=== PATIENT | male | born 1960 | race Caucasian/White ===

== ENCOUNTER → 2016-07-25 | Outpatient (CLI) | payer BC ==
[~2016-07-25] MED LIST: ALBUAER19 INH; ASPI81TA28 PO; CHOL20009 PO; CYAN10005 PO; GLCSR10 PO; LIRA18IN SQ; LISI-461 PO; METF-384 PO; RANI150T3 PO; ZCR40 PO
--- NOTE | 2016-07-28 21:17 | PULMONARY FUNCTION TEST ---
Spirometry is consistent with a moderate obstructive pattern. Repeat study done following bronchodilators showed significant improvement in function, indicating at least partially reversible obstructive airways disease. The forced vital capacity improved by 18% and the FEV1 improved by 17%. This would be compatible with a diagnosis of asthma.
== END | disposition home or self-care (01) ==
LOC: C.RC 10:35
PROVIDERS: ATTEND Student in an Organized Health Care Education/Training Program
DX: J45.909 Unspecified asthma, uncomplicated (principal)

== ENCOUNTER → 2017-01-04 | Outpatient (CLI) | payer BC ==
--- NOTE | 2017-01-08 13:50 | PULMONARY FUNCTION TEST ---
Spirometry shows a mild obstructive pattern. Repeat study done following bronchodilators showed a 22% improvement in forced vital capacity and a 20% improvement in FEV1. This would suggest at least partially reversible obstructive airways disease. Flow volume loops were consistent with spirometric findings.
== END | disposition home or self-care (01) ==
LOC: C.RC 09:12
PROVIDERS: ATTEND Family Medicine
DX: J45.41 Moderate persistent asthma with (acute) exacerbation (principal)

== ENCOUNTER → 2017-03-16 | Outpatient (CLI) | payer BC ==
[~2017-03-16] VITALS: Ht 182.9 cm; Wt 138.8 kg
[2017-03-16 13:22] VITALS: BP 170/80; PULSE 77; Ht 182.9 cm; Wt 138.8 kg
[2017-03-16 13:23] VITALS: BP 142/95; PULSE 65
== END | disposition home or self-care (01) ==
LOC: C.NEUR 12:57
PROVIDERS: ATTEND Internal Medicine Pulmonary Disease
DX: R06.83 Snoring (principal); R53.83 Other fatigue; R60.0 Localized edema; J45.909 Unspecified asthma, uncomplicated; J30.9 Allergic rhinitis, unspecified; J34.2 Deviated nasal septum

== ENCOUNTER → 2017-03-21 | Outpatient (CLI) | payer BC ==
--- NOTE | 2017-03-23 14:23 | POLYSOMNOGRAPH REPORT ---
CLINICAL DATA: A 56-year-old male with BMI of 41.5 referred by myself, Dr. Hurt and Dr. Mccarty with snoring, fatigue, peripheral edema, morning headaches, obesity, and asthma. On the evening of 03/21/2017, a home sleep apnea test was performed using a NovusEdge type 3 monitor. RECORDING RESULTS: Total recording time was 10 hours. The patient's monitoring time and estimated sleep time was 10 hours. RESPIRATORY DATA: Moderate sleep apnea was documented. The GRACE was 22.7. There were 28 obstructive, 6 mixed, and 1 central apneic episodes. There were 192 hypopneic episodes. The longest respiratory event was 56 seconds. OXIMETRY DATA: Nocturnal hypoxemia was seen. Oxygen nery 78%. Mean saturation was 90% . Time below 89% was 123 minutes. HEART RATE DATA: Heart rates ranged from 49-64 beats per minute. SNORING DATA: Loud snoring was recorded throughout the night. CRYSTALIZER OPERATOR'S COMMENTS: Snoring was recorded throughout the test. Hypopneas and apneas were seen. The patient also had some nonapneic desaturations. IMPRESSION: Moderate sleep apnea/hypopnea with nocturnal hypoxemia. RECOMMENDATIONS: The patient may benefit from a repeat sleep study with CPAP, use of auto CPAP, or use of an oral appliance. Clinical correlation is needed. ALYCE
== END | disposition home or self-care (01) ==
LOC: C.NEUR 09:29
PROVIDERS: ATTEND Internal Medicine Pulmonary Disease
DX: G47.30 Sleep apnea, unspecified (principal); J34.2 Deviated nasal septum; J30.9 Allergic rhinitis, unspecified; J45.909 Unspecified asthma, uncomplicated; R60.0 Localized edema; R53.83 Other fatigue; R06.83 Snoring

== ENCOUNTER → 2017-05-07 | Outpatient (CLI) | payer BC ==
--- NOTE | 2017-05-07 11:05 | DIAGNOSTIC IMAGING REPORT ---
KUB CLINICAL HISTORY: Nephrolithiasis. COMPARISON STUDY: KUB May 04, 2016. FINDINGS: Exam is compromised by suboptimal penetration. Bowel gas pattern is normal. No urinary calculi are identified. IMPRESSION: No urinary calculi identified. Electronically signed by: William Gallo M.D. 05/07/2017 11:04 AM Dictated Date/Time: 05/07/2017 11:03 AM
== END | disposition home or self-care (01) ==
LOC: C.RADPV 10:31
PROVIDERS: ATTEND Urology
DX: N20.0 Calculus of kidney (principal)

== ENCOUNTER → 2017-05-08 | Outpatient (CLI) | payer BC ==
[~2017-05-08] VITALS: Ht 182.9 cm; Wt 136.4 kg
[2017-05-08 16:27] VITALS: BP 137/98; PULSE 71; Ht 182.9 cm; Wt 136.4 kg
== END | disposition home or self-care (01) ==
LOC: C.NEUR 14:05
PROVIDERS: ATTEND Physician Assistant Medical
DX: G47.33 Obstructive sleep apnea (adult) (pediatric) (principal); R53.83 Other fatigue; E66.01 Morbid (severe) obesity due to excess calories; R06.83 Snoring; I10 Essential (primary) hypertension

== ENCOUNTER 2017-05-21 09:19 | Day surgery (SDC) | payer BC ==
[~2017-05-21] VITALS: Ht 182.9 cm; Wt 136.5 kg
--- NOTE | 2017-05-21 06:28 | History and Physical ---
History & Physical Date of Service May 21, 2017. History & Physical CC: Bilateral lower extremity varicose veins HPI: Mr. Owusu states that he has had these particularly in his right leg for a number of years and that in the past few months he has noticed some worsening down his lower leg. He has also had a pruritic rash to his lower legs which lasted a few weeks and then resolved which he believes may have been consistent with stasis dermatitis as he did some of his own Internet research. The patient does have some chronic discomfort in his bilateral knees for which he undergoes knee injections. He also has discomfort in the varicosities of his bilateral lower extremities which are significantly worse in the right leg than the left. He states that his right leg has chronically been larger due to edema in comparison to his left. He states that he recently retired and that he does have an old pair of compression stockings, but that he has not been wearing them on a regular basis. He states he has difficulty exercising due to his bilateral knee pain. Non invasives showed venous insufficiency of the right lower extremity. He denies any ulcers, bleeding varicosities from hard cords over his varicosities. He also denies headaches, fevers, chills, dizziness, chest pain, shortness of breath, abdominal pain, nausea, vomiting, diarrhea, constipation, dysuria, rest pain, claudication or other complaints. ALLERGIES: Bee stings and dust. HOME MEDICATIONS: Reconciled on the chart and include the following: Advair Diskus, albuterol, aspirin, azelastine, Flomax, fluticasone, Humalog KwikPen, Lantus SoloSTAR, metformin, omeprazole, ranitidine, simvastatin, vitamin B12 and vitamin D3. PAST MEDICAL HISTORY: Positive for asthma, degenerative joint disease, type 2 diabetes mellitus, hypertension, low-back pain and osteoarthritis. PAST SURGICAL HISTORY: Colonoscopy, deviated septum, left foot surgery, trigger finger release. SOCIAL HISTORY: Positive for past history of tobacco use. The patient quit smoking 36 years ago. He denies illicit drug use. He occasionally has beer 1- 2 times a week. REVIEW OF SYSTEMS: Negative for fatigue, fevers, sweats, weight loss, exercise intolerance, abnormal moles, vision changes or photophobia, ear pain, sinus problems, sore throat, cough, shortness of breath, hemoptysis or wheezing, chest pain, palpitations or syncope. He does have edema of his lower extremities, which is chronic and worse in the right leg than the left. He has abdominal pain, nausea, vomiting, diarrhea, constipation, dysuria, hematuria, muscle weakness, headaches, dizziness, numbness or seizures. PHYSICAL EXAMINATION: His vital signs are as follows: Blood pressure of 118/ 92 in the right arm, 128/82 in the left, heart rate 60, respiratory rate 18, oxygenation 96% on room air. Constitutional: In general, patient is an obese, generally healthy-appearing, well-nourished, well-developed middle-aged male in no acute distress. He ambulates without assistance and is active, alert and oriented x4 with normal recent and remote memory. Head is normocephalic and atraumatic. Eyes are EOMI. ENMT: No hearing loss, rhinorrhea or pharyngeal erythema. Neck is supple, nontender with midline trachea without masses or crepitus. Lungs: clear, no dyspnea. They are decreased somewhat throughout, but clear bilaterally. Cardiovascular exam demonstrates nondisplaced apical impulse. Peripheral pulses are full and equal in all extremities unless otherwise noted. Specifically, bilateral carotid, brachial, radial, femoral, posterior tibial and dorsalis pedis pulses. The patient demonstrates no bruits in his carotid, abdominal or femoral area. Abdomen is soft, nontender with normal active bowel sounds in all 4 quadrants without guarding or rebound. There is no flank or CVA tenderness. I am unable to appreciate a pulsatile mass due to body habitus. Bilateral upper extremities demonstrate no cyanosis, edema, varicosities or ulcers. Bilateral lower extremities do demonstrate some scattered varicosities as well as some skin changes consistent with hemosiderin deposits and venous stasis. His right leg demonstrates an extremely large varicosity which arises in the mid medial anterior thigh and extends across his knee as well as distally in the medial aspect of his right lower leg. This is nontender and there is no erythema or firm hard cord noted. Neurologically, the patient has grossly intact cranial nerves and grossly intact sensation. ASSESSMENT: Complicated varicose veins of the lower extremities. PLAN: Patient is admitted for ablation of the greater saphenous vein of the right lower extremity. I have discussed the risks options and benefits of the procedure with the patient. The patient understands the risks options and benefits and agrees to the procedure.
[~2017-05-21 09:19] MED LIST changes: +CEFAZOLIN 1000MG IV PUSH 5 ML IV SCH; +PATIENT'S HEIGHT AND/OR WEIGHT NEEDED SCH; +SODIUM CHLORIDE 0.9% 1000ML IV SCH
[2017-05-21] MEDS ORDERED: INSDGI SC ×2 (09:42→09:44)
[2017-05-21] MEDS ORDERED: INSPMPHMLG SC (09:44)
[2017-05-21 09:48] VITALS: BP 156/86; PULSE 57; TEMP 36.7; O2SAT 96; Ht 182.9 cm; Wt 136.5 kg
[2017-05-21] MEDS ORDERED: ADVIN25/60 INH (10:15)
[2017-05-21] MEDS ORDERED: SODIUM CHLORIDE 0.9% 1000ML 1,000 ML IV SCH (10:17)
--- NOTE | 2017-05-21 10:18 | Procedure Note ---
Pre-Mod Sedation Assessment General Date of Moderate Sedation: May 21, 2017. Vital Signs: Vital Signs Past 12 Hours Date Time Temp Pulse Resp B/P (MAP) Pulse Ox O2 Delivery O2 Flow Rate FiO2 05/21/17 09:48 36.7 57 20 156/86 (109) 96 Room Air Pre-Sedation Airway Assessment Short Thick Neck: No Hx of Sleep Apnea: Yes Smoking Status: Never Smoker Mallampati Classification: Class I ASA Classification: Class I Notes The planned sedation has been discussed with the patient and consent obtained. I have identified the patient, determined the appropriateness of sedation and have assessed the patient immediately prior to the procedure. All medicine(s) and interventions are by my order.
--- NOTE | 2017-05-21 10:18 | History & Physical Bridge Note ---
H&P Re-Evaluation Bridge Note: I have examined the patient, reviewed the History & Physical and in the interval since the performance of the History & Physical I have noted the following changes of clinical significance: No changes noted
[2017-05-21] MEDS ORDERED: CEFAZOLIN SOD 3000MG/15 ML IV PUSH IV ONE (10:21)
[2017-05-21] MEDS ORDERED: LIDOCAINE HCL 1% 20 ML VIAL ONE (10:28)
[2017-05-21] MEDS ORDERED: LIDOCAINE/EPINEPHRINE 1% INJ 50 ML VIAL ONE (10:28)
[2017-05-21] MEDS ORDERED: FENTANYL CITRATE INJ 50 MCG/1 ML 2 ML VIAL ONE (10:28)
[2017-05-21] MEDS ORDERED: MIDAZOLAM HCL 1 MG/ML 2ML VIAL ONE (10:28)
[2017-05-21] MEDS ORDERED: CEFAZOLIN IV 1,000 MG in DEXTROSE 5% 50ML 50 ML IV ONE (10:30)
[2017-05-21 10:35] VITALS: BP 156/86; PULSE 57; TEMP 36.7; O2SAT 96
[2017-05-21] MEDS ORDERED: MIDAZOLAM HCL 5 MG/ML 1 ML VIAL IV ONE (10:54)
--- NOTE | 2017-05-21 11:26 | Procedure Note ---
Post-Moderate Sedation Plan General Date of Moderate Sedation May 21, 2017. Vital Signs: Vital Signs Past 12 Hours Date Time Temp Pulse Resp B/P (MAP) Pulse Ox O2 Delivery O2 Flow Rate FiO2 05/21/17 10:35 36.7 57 20 156/86 96 Room Air 05/21/17 09:48 36.7 57 20 156/86 (109) 96 Room Air Review - Discharge Plan Post Moderate Sedation Plan: On clinical assessment, the patient appears to have tolerated the conscious sedation without complications. Patient is recovering as anticipated. Patient will continue to be monitored by nursing and may be discharged when conscious sedation discharge criteria are met.
--- NOTE | 2017-05-21 11:27 | [facility] Post Operative Brief Note ---
Immediate Operative Summary Operative Date May 21, 2017. Pre-Operative Diagnosis Venous Insufficiency Post-Operative Diagnosis Same Procedure(s) Performed Radiofrequency Ablation Right Great Saphenous Vein Moderate Sedation [id number] Surgeon Travis Obstetrics Teacher Surgeon(s) Frannie Estimated Blood Loss 5 Findings Patent CFV post ablation Specimens None Anesthesia Local with sedation Complication(s) None Disposition
--- NOTE | 2017-05-21 11:29 | Discharge Instructions ---
Discharge Instructions Date of Service May 21, 2017. Visit Reason for Visit: Complicated Varicose Veins Discharge Discharge Diagnosis / Problem: Right venous insufficiency Discharge Goals Goal(s): Therapeutic intervention Activity Recommendations Activity Limitations: per Instructions/Follow-up section Anesthesia . Post Anesthesia Instructions: If you have had General Anesthesia or IV Sedation: * Do not drive today. * Resume driving when surgeon permits. * Do not make important decisions or sign legal documents today. * Call surgeon for: 1. Temperature elevations greater than 101 degrees F. 2. Uncontrollable pain. 3. Excessive bleeding. 4. Persistent nausea and vomiting. 5. Medication intolerance (nausea, vomiting or rash). * For nausea and vomiting use only clear liquids such as: tea, soda, bouillon until nausea subsides, then gradually increase diet as tolerated. * If you have any concerns or questions, call your surgeon's office. If physician is unavailable and it is an emergency, call 911 or go to the nearest emergency room. . Instructions / Follow-Up Instructions / Follow-Up Call [phone] to schedule a follow up appointment if one not already scheduled. SPECIAL CARE INSTRUCTIONS: Wraps/Dressings: * A compression wrap will be applied to your legs after the procedure and should remain in place until the morning after. * Remove the bandage if it rolls down or causes pain. Rewrap the leg starting at the bottom of the leg, just above the toes. Apply firm, but gently pressure when applying the wrap. * Avoid getting the wrap wet. * You may shower the following morning after you remove the wraps/dressings. Compression Stockings: * Begin wearing compression stockings the day following your procedure (after you have removed the wraps/dressings and showered). * Compression stockings should be put on in the morning and removed right before going to bed. * Stockings should be worn for 2 weeks following the procedure. * YOU MUST OBTAIN THE PRESCRIBED STOCKINGS PRIOR TO YOUR PROCEDURE. Activity: * Walk 4-5 times around the house after you come home from your procedure. * Elevate your leg(s) while sitting. * You may resume your normal activities as tolerated after 48 hours. * AVOID HEAVY LIFTING FOR 1 WEEK AND/OR CAR TRIPS OVER 1 HOUR OR FLYING FOR 2 WEEKS. Possible Complications: * Swelling/Bruising/Soreness - You may have some swelling, bruising and/or soreness after the procedure. you may also feel a "cord or rope" under the skin. This is normal. You may take Tylenol or Ibuprofen for pain as directed. Call our office ([phone]) if you develop: * Any redness, severe swelling, pain in the calf and/or drainage from the puncture sites You will be receiving a call from the Vascular Surgery Nurse after you are discharged. FOLLOW UP VISIT: You will be scheduled for an ultrasound of your leg(s) 4-5 days after the procedure. You will have a follow up visit with your surgeon in 2-4 weeks. If these have not already been scheduled, please call our office at [phone] to schedule. Diet Recommendations Recommended Home Diet: resume previous diet Procedures Procedures Performed: Radiofrequency Ablation Right Great Saphenous Vein Moderate Sedation [id number] Pending Studies Studies pending at discharge: no Medical Emergencies . Who to Call and When: Medical Emergencies: If at any time you feel your situation is an emergency, please call 911 immediately. . Non-Emergent Contact Non-Emergency issues call your: Surgeon . . "Provider Documentation" section prepared by Jonh Robles. .
[2017-05-21] MEDS ORDERED: LIDOCAINE HCL 1% 20 ML VIAL INJ ONE (11:31)
[2017-05-21] MEDS ORDERED: ORM MISCELLANEOUS MED XX ONE (11:31)
[2017-05-21] MEDS ORDERED: FENTANYL CITRATE INJ 50 MCG/1 ML 2 ML VIAL IV ONE (11:34)
[2017-05-21 11:35] VITALS: BP 129/82; PULSE 61; TEMP 36.6; O2SAT 94
--- NOTE | 2017-05-21 11:56 | DIAGNOSTIC IMAGING REPORT ---
DATE OF PROCEDURE: 05/21/2017 PREOPERATIVE DIAGNOSIS: Right lower extremity greater saphenous vein venous insufficiency with symptomatic varicosities. POSTOPERATIVE DIAGNOSIS: Same. PROCEDURE: 1. Right lower extremity greater saphenous vein ablation. 2. Conscious sedation for 35 minutes. SURGEON: Dr. Jonh Robles. RESUME WRITER: Dr. Lilly Kathleen. ANESTHESIA: Local plus conscious sedation. URINE OUTPUT: Not recorded. CONDITION: Stable to recovery room. COMPLICATIONS: None apparent. INDICATIONS: Mr. Owusu is a 56-year-old male who presents with large right lower extremity varicosities that are painful and greater saphenous vein venous insufficiency. He has failed steroid therapy so he was advised of the risks and benefits of undergoing evaluation; he agreed to undergo the above procedure. DESCRIPTION OF PROCEDURE: He was brought into the operative suite. He was placed in supine position. He was prepped and draped in the usual fashion. A timeout occurred. His right greater saphenous vein was intubated for its entire length. It was found to be entirely from the saphenofemoral junction to the mid calf. It was found to be large throughout its entire length. An adequate spot in the mid calf was identified this area of access. A micropuncture needle was then used to access the greater saphenous vein under ultrasound guidance. The micro wire was inserted. Its placement was confirmed under ultrasound. The sheath was placed over the wire. A 0.025 wire was then placed through the sheath into the greater saphenous vein up to the saphenofemoral junction. The ablation catheter was placed over the wire. Its position 2.5 cm from the saphenofemoral junction was identified and measured under ultrasound. The wire was then removed. Tumescent was instilled around the entire length of the greater saphenous vein. The position of the catheter was reconfirmed with ultrasound that it was 2.5 cm from the greater saphenous junction. Radiofrequency ablation was then performed on the right greater saphenous vein. The first and second was ablated twice and the rest was ablated once. The catheter and sheath were removed and hemostasis was obtained. The patient's leg was then wrapped with Stoney wrap and he was transferred to the recovery room in stable condition. Dr. Jonh Robles was present and scrubbed for the entirety of this case. ALYCE
[2017-05-21 12:05] VITALS: BP 149/91; PULSE 57; TEMP 36.5; O2SAT 94
== END 2017-05-21 12:30 | disposition home or self-care (01) ==
LOC: C.ACU 09:19
PROVIDERS: ATTEND Surgery Vascular Surgery
DX: I87.2 Venous insufficiency (chronic) (peripheral) (principal); I10 Essential (primary) hypertension; E11.9 Type 2 diabetes mellitus without complications; J45.909 Unspecified asthma, uncomplicated; M19.90 Unspecified osteoarthritis, unspecified site; Z87.891 Personal history of nicotine dependence; Z79.82 Long term (current) use of aspirin; Z79.4 Long term (current) use of insulin; Z79.899 Other long term (current) drug therapy

== ENCOUNTER → 2017-05-22 | Outpatient (CLI) | payer BC ==
[~2017-05-22] MED LIST changes: +ADVIN25/60 INH; -CEFAZOLIN 1000MG IV PUSH 5 ML IV SCH; -GLCSR10 PO; +INSDGI SC; +INSPMPHMLG SC; -LIRA18IN SQ; -PATIENT'S HEIGHT AND/OR WEIGHT NEEDED SCH; -SODIUM CHLORIDE 0.9% 1000ML IV SCH
--- NOTE | 2017-05-23 05:19 | PAP/PSG TECHNICIAN REPORT ---
[facility] Car Installations Supervisor Polysomnogram Report Study name: None Report date: 05/23/2017 Study date: 05/22/2017 Referring Physician: Kofi Chowdhury M.D. Name: RACHEL OWUSU Interpreting Physician: Kofi Chowdhury M.D. Date of : 1960 Car Installations Supervisor: Ann Garcia [facility]. Sex: Male Age: 56 Study Type: PSG PAP Weight: 300 lbs Height: 56 years, Height 6' 0" BMI: 40.68 Medications: ADVAIR DISKUS 250-50-MCG/DOSE, ALFUZOSIN 10 MG, FLONASE, HUMALOG 100 UNIT/ML, LANTUS SOLOSTAR 100 UNIT/ML, LISINOPRIL 10 MG, METFORMIN 1000 MG, OMEPRAZOLE, SIMVASTATIN 40 MG, VENTOLIN HFA, VIT B-12 1000 MCG, VIT D 2000 UNIT, ZANTAC Patient History 56 yr-old male here for a new CPAP treatment study. He was found to be positive for CARSON via a home sleep study. He chose a Simplus full face mask size medium from [employer]. The test was started on room air and 4 CMH2O. ETCO2 testing was not utilized during this study. Room 1 Parameters Monitored NPSG: E1-M2, E2-M1, Fp1-M2, Fp2-M1, F3-M2, F4-M2, F4-M1, C3-M2, C4-M2, C4-M1, O1-M2, O2-M2, O2-M1, T3-M2, T4-M1, P3-M2, P4-M1, CHIN1, CHIN2, HR, EKG, Legs, PFLOW, SNOR, FLOW, CFLOW, Tidal Volume, THOR, ABDO, SpO2, PLTH, CPRESS, ETCO2 Wave, ETCO2, pH Sleep Architecture Sleep Stages Time at Lights Off 10:19:19 PM STAGES Time (min.) TST (%) Time at Lights On 5:04:19 AM Wake 48.0 -- Total Recording Time (TRT) 405.00 min. N1 24.5 7 Total Sleep Period (TSP) 394.0 min. N2 271.5 76 Total Sleep Time (TST) 357.0min. N3 0.0 0 Awake Time 48.0 min. REM 61.0 17 Wake after Sleep Onset 39.0 min. Sleep Efficiency (SE) 88 % Sleep Onset Latency (JANNETTE) 9.0 min. Number of Stage 1 Shifts None Awakenings 13 Stage Changes 57 Number of REM periods 4 REM 61.0 17 REM Latency 174.0 min. NREM 296.0 83 Body Position Analysis Supine Right Left Side Prone Vertical Total Sleep Time (min.) 319.5 0.5 66.0 66.50 0.0 0.0 Total Sleep Time (%) 81% 0% 18% 19 0% N/A% Total Sleep Time REM (min.) 61.0 0.0 0.0 None 0.0 0.0 Total Sleep Time NREM (min.) 229.5 0.5 66.0 None 0.0 0.0 Intermittent Wake (min.) 29.0 14.7 4.3 None 0.0 0.0 Total Sleep Period (%) 81% None None None None None Arousals Myoclonus (PLM) * Events Count Index Events Count Index Spontaneous 15 3 Events Awake (PLMW) 99 123.8 Respiratory 15 2.5 Events Asleep w/ Arousal (PLMA) 14 2.4 PLM 14 2 Events Asleep w/o Arousal (PLMS) 401 67.4 Snoring 1 0 Total Asleep 415 69.7 Total 44 7 Total 514 76 Respiratory Analysis * CA OA MA CH H RERA Total Count 3 7 1 0 32 0 43 Index 0.5 1.2 0.2 0 5.4 0 7.2 Mean Duration 14.7 18.5 22.1 0.00 16.4 0.0 16.8 Longest Duration 16.3 22.1 22.1 0.00 22.1 0.0 26.8 Respiratory Event Summary Total Supine ~Supine Right Left Prone REM NREM Apneas Count 11 5 6 1 5 N/A 0 11 Index 1.8 1 5 120.0 4.5 N/A 0 2 Hypopneas (4% Desat) Count 32 25 7 0 7 N/A 12 20 Index 5.4 5.2 6 0.0 6.4 N/A 11.8 4.1 Apneas & All Hypopneas Count 43 30 13 1 12 N/A 12 31 Index 7.2 6 12 120 11 N/A 11.8 6.3 Respiratory Events (Audio Visual Aids Director+All Hyp+RERA) Count 43 30 13 1 12 N/A 12 31 Index 7.2 6 12 120.0 10.9 N/A 11.8 6.3 Respiratory Related Arousal Count 15 30 7 1 6 N/A 2 13 Index 2.5 2 6 120 5 N/A 2 3 Snoring Analysis Supine Right Left Prone REM NREM Total Snore duration 5.0 min Snores count 67 0 119 N/A 31 155 186 Snore mean duration 1.6 Sec Snores index 14 0 108 N/A 30.5 31.4 31.3 TST with snoring (%) 1.4% Desaturation Event Summary: Minimum %SpO2 Event Count Mean/Min/Max Duration(sec.) Desaturation Index % Time In Bed > 90 72 22.5 / 8.3 / 55.0 12.6 85.4 86 - 90 10 13.9 / 7.0 / 24.0 10.5 14.2 81 - 85 0 N/A 0.0 0.3 76 - 80 0 N/A 0.0 0.0 71 - 75 0 N/A 0.0 0.0 66 - 70 0 N/A 0.0 0.0 61 - 65 0 N/A 0.0 0.0 56 - 60 0 N/A 0.0 0.0 51 - 55 0 N/A 0.0 0.0 < 50 0 N/A 0.0 0.0 Total REM NREM Awake <50% 0.0 min. 0.0 min. 0.0 min. 0.0 min. 51 - 60% 0.0 min. 0.0 min. 0.0 min. 0.0 min. 61 - 70% 0.0 min. 0.0 min. 0.0 min. 0.0 min. 71 - 80% 0.0 min. 0.0 min. 0.0 min. 0.0 min. 81 - 90% 58.4 min. 8.8 min. 44.9 min. 4.7 min. 91 - 100% 342.7 min. 52.2 min. 250.8 min. 39.7 min. Average 92 92 92 93 Minimum SpO2 82 85 83 82 Desaturation Event Index 11.0 17.7 8.1 21.3 # Desat. Events below 89% 37 8 22 7 Time(%) with Saturation below 89% 2.1 0.7 1.0 0.4 Time(min.) with Saturation below 89% 8.4 2.8 3.9 1.8 Time (mins) REM (mins) NREM (mins) % of TST SpO2 Below 90% 47 14 N33 5.1 SpO2 Below 88% 10 0 0 1 Heart Rate Analysis Min (bpm) Max (bpm) Average (bpm) Awake 40 188 77 NREM 60 100 68 REM 62 95 72 Overall 60 100 69 Supplemental O2 Values Minimum O2 level: None Value Start Time End Time Car Installations Supervisor Comments Mr. Owusu slept in the left and supine positions. Cardiac arrhythmias were noted (please refer to the print outs). PLMs were noted. No bruxism noted. CPAP was initiated at +4 CMH2O and up-titrated to a level of +9 CMH2O, Cflex 2 which nearly eliminated all respiratory events and snoring. A Simplus full face mask size medium from [employer] was used during titration He did not wake up to use the restroom during the night. Mr. Owusu stated that he slept ok. The final report will be interpreted and signed by a sleep physician. The completed physician report will then be placed in the patient medical record. CPAP REPORT Therapy Detail Time / Page # Comment CPAP 4 cm H2O Nasal Pillow Mask Flex Pressure Relief Humidifier on 10:17:14 PM / pg. 204 CPAP 6 cm H2O Nasal Pillow Mask Flex Pressure Relief Humidifier on 10:56:20 PM / pg. 283 INCREASED FOR APNEAS AND HYPOPNEAS CPAP 7 cm H2O Nasal Pillow Mask Flex Pressure Relief Humidifier on 12:31:18 AM / pg. 472 INCREASED FOR APNEAS AND HYPOPNEAS CPAP 8 cm H2O Nasal Pillow Mask Flex Pressure Relief Humidifier on 2:00:22 AM / pg. 651 INCREASED FOR HYPOPNEAS CPAP 9 cm H2O Nasal Pillow Mask Flex Pressure Relief Humidifier on 3:53:44 AM / pg. 877 INCREASED FOR MORE HYPOPNEAS Therapy Event: Therapy (cm H20) 4 6 7 8 9 Total Time at Pressure (min.) 37.0 95.0 89.1 113.4 70.6 TST at Pressure (min.) 7.0 82.5 88.6 110.4 68.6 # Periods 1 1 1 1 1 Sleep Onset (min.) 9.0 0.0 0.0 0.0 0.0 REM Onset (min.) N/A N/A 51.0 0.0 66.1 Sleep Efficiency % 19 86 99 97 97 Wakefulness (%) 81.0 13.2 0.6 2.6 2.8 Wakefulness (min.) 30.0 12.5 0.5 3.0 2.0 NREM 1 (%) 8.1 11.1 5.1 2.6 5.0 NREM 1 (min.) 3.0 10.5 4.5 3.0 3.5 NREM 2 (%) 10.9 75.8 52.2 76.2 88.7 NREM 2 (min.) 4.0 72.0 46.5 86.4 62.6 NREM 3 (%) 0.0 0.0 0.0 0.0 0.0 NREM 3 (min.) 0.0 0.0 0.0 0.0 0.0 REM (%) 0.0 0.0 42.2 18.5 3.5 REM (min.) 0.0 0.0 37.6 20.9 2.5 # Arousals 4 17 9 7 7 Arousal Index 34.2 12.4 6.1 3.8 6.1 # Snore 27 95 10 37 17 Snore Index 230.8 69.1 6.8 20.1 14.9 AHI 51.3 10.9 6.8 4.3 3.5 AHI Supine N/A 20.9 6.8 4.3 3.5 AHI Non-Supine 51.3 7.1 N/A N/A N/A NREM AHI 51.3 10.9 5.9 1.3 2.7 REM AHI N/A N/A 8.0 17.2 24.0 RDI 51.3 10.9 6.8 4.3 3.5 # Obstructive 3 4 0 0 0 # Central Ap 2 1 0 0 0 # Mixed 0 1 0 0 0 # Hypopneas 1 9 10 8 4 RERAS 0 0 0 0 0 Total Respiratory Events 6 15 10 8 4 Time Below SpO2 89.00% (min.) 1.0 2.5 1.8 0.2 1.1 Mean NREM SpO2 (%) 91 91 91 93 92 Mean REM SpO2 (%) N/A N/A 92 93 89 Mean Sleep SpO2 (%) 91 91 92 93 92 Min NREM SpO2 (%) 84 83 86 91 89 Min REM SpO2 (%) N/A N/A 85 87 85 Position Supine (min.) 0.0 23.0 88.6 110.4 68.6 Position Non-supine (min.) 7.0 59.5 0.0 0.0 0.0 LM Index Sleep 8.5 103.3 100.3 60.3 11.4 LM Index NREM 8.5 103.3 125.9 65.1 5.4 LM Index REM N/A N/A 65.5 40.1 168.0 Mean Heart Rate (bpm) 68 71 71 67 66 Min Heart Rate (bpm) 62 61 61 60 60
--- NOTE | 2017-05-24 09:35 | POLYSOMNOGRAPH REPORT ---
CLINICAL DATA: A 56-year-old male with BMI of 40.7 referred by myself, Nadira Thompson and Dr. Mccarty for a CPAP study. He had a previous sleep study done which showed moderate sleep apnea with nocturnal hypoxemia and does have fatigue. SLEEP ARCHITECTURE: Total sleep period was 394 minutes. Total sleep time was 357 minutes divided between 296 minutes of non-REM sleep and 61 minutes of REM sleep. Sleep onset latency was 9 minutes. REM latency was 174 minutes. Sleep efficiency was 88%. Awake after sleep onset was 39 minutes. Sleep consisted of stage N1 7%, stage N2 76%, and REM 17%. AROUSAL DATA: Forty-four arousals recorded for an index of 7 per hour. PLM DATA: Significantly elevated limb movements during sleep were noted. There were 415 limb movements during sleep noted for an index of 69.7 per hour with arousal index of 2.4 per hour. RESPIRATORY DATA: The AHI was 7.2. There were 3 central, 7 obstructive, and 1 mixed apneic episode. Longest apneic episode was 22.1 seconds. There were 32 hypopneic episodes with the mean duration of 16.4 seconds. OXIMETRY DATA: Nocturnal hypoxemia was seen. Oxygen nery was 83%. Mean saturation was 92%. Time below 88% was 10 minutes. EKG: Heart rates ranged from 60-100 beats per minute. Occasional PVCs were noted. MOTEL MANAGER'S COMMENTS AND TREATMENT SUMMARY: The patient slept in the left and supine position. Frequent PLMs were noted. A Simplus full facemask size medium from [employer] was used. The patient was started on CPAP and titrated up to his final pressure of 9 cm of water pressure. At his final pressure setting he slept for 68.6 minutes with an AHI of 3.5. IMPRESSION: Moderate sleep apnea/hypopnea, nocturnal hypoxemia corrected with CPAP 9 cm of water pressure, C-Flex 2 with a Simplus full facemask size medium from [employer]. RECOMMENDATIONS: The patient should be started on the above noted treatment regimen and seen back in followup within 90 days to document efficacy and compliance.
== END | disposition home or self-care (01) ==
LOC: C.NEUR 20:00
PROVIDERS: ATTEND Physician Assistant Medical
DX: G47.33 Obstructive sleep apnea (adult) (pediatric) (principal); E66.01 Morbid (severe) obesity due to excess calories